=== PATIENT | male | born 1960 | race Caucasian/White ===

== ENCOUNTER 2017-07-02 12:14 | Emergency (ER) | payer MEDICAID ==
[~2017-07-02] VITALS: Ht 182.9 cm; Wt 81.6 kg
[2017-07-02 12:29] VITALS: BP 164/109
[2017-07-02] MEDS ORDERED: NKM (12:34)
[2017-07-02] MEDS ORDERED: IBUPROFEN600 MG ORAL (13:36)
[2017-07-02 13:43] VITALS: BP 121/91
--- NOTE | 2017-07-02 14:43 | Diagnostic Imaging Report ---
Indication: Pain Technique: XRAY Hand Complete L Comparison: None Findings: There is no acute fracture or dislocation. There is slight irregularity of of the cortex of the ulnar styloid which is well-corticated. There is slight lucency of the ulnar styloid. These findings may be sequela of remote trauma. Anatomic alignment and joint spaces are preserved. No radiopaque foreign body seen. Impression: No acute fracture or dislocation.
--- NOTE | 2017-07-02 15:41 | Emergency Room Report ---
History of Present Illness General Chief Complaint: Pain Source: Patient Present Illness HPI The patient is a 57-year-old male presenting for left thumb pain. He states that approximately one year ago, he noticed that he was unable to fully straighten his left thumb. He denies any known injury. Pain has been gradually increasing and is now 7/10 dull ache. Does not radiate. Worse with touch and movement. He did not notice any swelling or bruising to the area. He denies any numbness or tingling. He denies any other symptoms Allergies: Coded Allergies: CEPHALEXIN (Verified Allergy, Unknown, 07/02/17) Patient History Past Medical History: see triage record Pertinent Family History: none Reviewed Nursing Documentation: PMH: Agreed, PSxH: Agreed Nursing Documentation-PMH Past Medical History: No Stated History Review of Systems All Other Systems: negative except mentioned in HPI Physical Exam Vital Signs Date Time Temp Pulse Resp B/P (MAP) Pulse Ox O2 Delivery O2 Flow Rate FiO2 07/02/17 12:29 98.1 16 164/109 99 Room Air 07/02/17 12:29 99 Sp02 EP Interpretation: reviewed, normal General Appearance: no apparent distress, alert, GCS 15, non-toxic Head: normocephalic, atraumatic Eyes: bilateral eye normal inspection, bilateral eye PERRL ENT: hearing grossly normal, normal pharynx, no angioedema, normal voice Musculoskeletal: back normal, gait/station normal, decreased range of motion - Unable to fully extend at L thumb IPJ, tender - L thumb IPJ Neurologic: alert, oriented x3, responsive, motor strength/tone normal, sensory intact, speech normal Psychiatric: judgement/insight normal, memory normal, mood/affect normal, no suicidal/homicidal ideation Skin: normal color, no rash, warm/dry, well hydrated Procedures Splinting Splinting : Consent: Verbal Location: L thumb Pre-Made Type: metal Splint: finger Pre-Proc Neuro Vasc Exam: normal Post-Proc Neuro Vasc Exam: normal Patient Tolerated: Well Complications: None Medical Decision Making PA Attestation Dr. Ashford is my supervising physician. Patient management was discussed with my supervising physician Diagnostic Impression: Primary Impression: Left thumb sprain Qualified Codes: S63.622A - Sprain of interphalangeal joint of left thumb, initial encounter ER Course The patient is a 57-year-old male presenting for left thumb pain. Ddx considered include but not limited to sprain/strain, fracture, contusion, among others PE: NAD Left thumb: Unable to fully extend at the IP joint. No ecchymosis or edema. Full flexion is intact. Sensation is intact X-ray of the hand is unremarkable Finger splint is placed on the left thumb and the patient will followup with primary doctor. He will need to see a hand specialist. ER precautions given Other X-Ray Diagnostic Results Other X-Ray Diagnostic Results : X-Ray ordered: L hand # of Views/Limited Vs Complete: 3 View Indication: Pain EP Interpretation: Yes SUSY Xray: Interpretation reviewed, by supervising MD, and agrees with findings. Interpretation: no dislocation, no soft tissue swelling, no fractures Impression: No acute disease Electronically Signed by: Joaquín Felix PA-C Last Vital Signs Date Time Temp Pulse Resp B/P (MAP) Pulse Ox O2 Delivery O2 Flow Rate FiO2 07/02/17 13:43 98.1 97 16 121/91 99 Room Air Status: improved Disposition: HOME, SELF-CARE Condition: Improved Scripts Ibuprofen* (MOTRIN*) 600 Mg Tablet 600 MG ORAL Q8H Y for For Pain, #30 TAB 0 Refills Prov: JOAQUÍN FELIX 07/02/17 Patient Instructions: Thumb Sprain Additional Instructions: I discussed my findings with the patient. All questions and concerns have been answered. Treatment and medication compliance have been addressed. I advised the patient that they need to follow up with PMD in 3-5 days. Return to ED if pain remains or worsens, numbness or tingling occurs, new rash is noticed, fever is noticed, or if needed for any reason. Patient verbalized understanding of discharge instructions. The patient was informed he needs to see a hand specialist for further treatment and evaluation JOAQUÍN FELIX Jul 02, 2017 15:41
== END 2017-07-02 13:43 | disposition home or self-care (01) ==
LOC: EMR 13:00
DX: S63.622A Sprain of interphalangeal joint of left thumb, initial encounter (principal); Z88.1 Allergy status to other antibiotic agents; X58.XXXA Exposure to other specified factors, initial encounter; Y92.9 Unspecified place or not applicable
CPT/HCPCS: 29130; 99283

== ENCOUNTER 2018-10-20 04:59 | Emergency (ER) | payer MEDICAID, OTHER ==
[~2018-10-20] VITALS: Ht 182.9 cm; Wt 81.6 kg
[~2018-10-20 04:59] MED LIST: IBUPROFEN600 MG ORAL; NKM
[2018-10-20] MEDS ORDERED: NKM (05:07)
[2018-10-20 05:12] VITALS: BP 148/89
--- NOTE | 2018-10-20 05:12 | NUR ---
ED Nurse Note: Pt arrived ED from home, c/o right foot pain due to old shingles on it for 20 days. Pt is A/O X 4. Vital signs stable at this time, waiting for orders.
--- NOTE | 2018-10-20 05:24 | Emergency Room Report ---
History of Present Illness General Chief Complaint: Pain Source: Patient Present Illness HPI Patient is a 58-year-old male presented after increased right lower extremity pain. Patient a prior history of shingles to his right lower extremity. He recently been given prescription for acyclovir as well as for prednisone and gabapentin. Patient been noted to have persistent pain to the area. Patient denies any difficulty with movement but states that he has been having some electric type pain to the right lower extremity. He denies any prior history of diabetes or HIV. Allergies: Coded Allergies: CEPHALEXIN (Verified Allergy, Unknown, 07/02/17) Patient History Past Medical History: see triage record Reviewed Nursing Documentation: PMH: Agreed; PSxH: Agreed Nursing Documentation-PM Past Medical History: No Stated History Review of Systems All Other Systems: negative except mentioned in HPI Physical Exam Vital Signs Date Time Temp Pulse Resp B/P (MAP) Pulse Ox O2 Delivery O2 Flow Rate FiO2 10/20/18 05:03 98.1 100 18 95 Room Air General Appearance: well appearing, no apparent distress, alert, GCS 15 Head: normocephalic, atraumatic ENT: hearing grossly normal, normal voice Neck: full range of motion, supple Respiratory: chest non-tender, lungs clear, normal breath sounds, no respiratory distress, speaking full sentences Cardiovascular #1: normal inspection Gastrointestinal: normal inspection, soft Neurologic: normal inspection, alert, oriented x3, responsive, product info specialist III-XII nml as tested, normal gait Psychiatric: mood/affect normal Skin: other - crusted lesions to topical foot. Medical Decision Making Diagnostic Impression: Primary Impression: Postherpetic neuralgia ER Course Patient presented for foot pain. Differential diagnosis include was not limited to vascular occlusion, neuropathy, postherpetic neuralgia among others. Patient has a benign exam and does not appear to require any further imaging or laboratory testing at this time. Patient appears to be vascularly intact. He was noted to have prior episode of shingles several weeks ago and was noted to have appears to be postherpetic nerve neuralgia.Patient was given prescription for medications for symptomatic treatment. Patient was advised to follow-up with primary care physician for recheck.Patient advised that he may need neurology referral if pain persists. He was given prescription for Tegretol as well as capsaicin cream. Last Vital Signs Date Time Temp Pulse Resp B/P (MAP) Pulse Ox O2 Delivery O2 Flow Rate FiO2 10/20/18 05:03 98.1 100 18 95 Room Air Status: improved Disposition: HOME, SELF-CARE Condition: Stable Scripts Capsaicin (Zostrix) 56.6 Gm Cream..g. 56.6 GM TP TWICE A DAY, #60 GM Prov: Donny Davidson MD 10/20/18 Carbamazepine (TEGRETOL*) 200 Mg Tablet 200 MG PO Q12HR, #14 TAB 0 Refills Prov: Donny Davidson MD 10/20/18 Referrals: [facility] (PCP) Donny Davidson MD October 20, 2018 05:24
[2018-10-20] MEDS ORDERED: ZOSTRIX56.6 G1 TP (05:29)
[2018-10-20] MEDS ORDERED: TEGRETOL200 MG PO (05:29)
[2018-10-20] MEDS ORDERED: Capsaicin 0.075% Cream TOPIC ONE (05:30)
[2018-10-20 05:45] VITALS: BP 142/82
--- NOTE | 2018-10-20 05:45 | NUR ---
ER DISCHARGE NOTE: Patient is cleared to be discharged per ERMD, pt is aox4, on room air, with stable vital signs. pt was given dc and prescription instructions, pt was able to verbalize understanding, pt id band removed without complications. pt is able to ambulate with steady gait. pt took all belongings.
== END 2018-10-20 05:46 | disposition home or self-care (01) ==
LOC: EMR 05:18
DX: B02.29 Other postherpetic nervous system involvement (principal); Z88.1 Allergy status to other antibiotic agents
CPT/HCPCS: 99282